=== PATIENT | female | born 1990 | race Caucasian/White ===

== ENCOUNTER 2019-03-02 14:55 | Outpatient (CLI) | payer MEDICAID ==
[~2019-03-02 14:55] MED LIST: PREN-19 PO
[2019-03-02] MEDS ORDERED: BETAMET NA PHOS/AC(6 MG/ML) 2 ML INJ SYG IM ONE (19:30)
[2019-03-02] MEDS ORDERED: TERBUTALINE 1 MG/ML INJ SC ONE (19:30)
--- NOTE | 2019-03-02 19:59 | PN ---
Triage Information Date/Time 03/02/19 Reason for visit: Uterine contractions Weeks of Gestation 35w4d /Para A2 Diabetes: none Hypertention: none Objective Heart Rate: 150's Contractions: >10 Minutes Apart Exam VE close /40/-3 Results/Medications Results 24 hrs Laboratory Tests Test 03/02/19 17:45 Urine Color YELLOW Urine Clarity CLEAR Urine pH 6.0 Urine Specific [place] 1.018 Urine Ketones NEGATIVE Urine Nitrite NEGATIVE Urine Bilirubin NEGATIVE Urine Urobilinogen NEGATIVE Urine Leukocyte Esterase NEGATIVE Urine Hemoglobin NEGATIVE Urine Glucose NEGATIVE Urine Total Protein NEGATIVE Medications terbutaline BMZ x1 Imaging Results BPP 03/15 VIC 10.9 Disposition: Discharge Assessment/Plan A IUP 35w4d R/O PTL P discharge home RTH for 2nd dose in 24hrs JR JIMENEZ MD Mar 02, 2019 19:59
--- NOTE | 2019-03-02 21:32 | TRIAGE ---
OB Triage Datetime Report Generated by CPN: 03/02/2019 21:32 Datetime: 03/02/2019 20:55 Pain Assessment Pain Scale: 0 Pain Presence: None/Denies Pain Type: N/A Pain Assessment Comments: Pt refuses need for Terbutaline, minimal UC's noted. Datetime: 03/02/2019 20:13 Pain Assessment Pain Scale: 0 Pain Presence: None/Denies Pain Type: N/A Datetime: 03/02/2019 19:00 Labor Evaluation Frequency: Irregular Monitor Mode: External Duration (sec)2399: 30-60 Quality: Mild Pattern: Normal: <= 5 Contractions in 10 Minutes Resting Tone [place]: Relaxed Contraction Comments: uterine irritability noted Heart Rate FHR Baseline Rate: 130 Monitor Mode: External US FHR Baseline Changes: No Baseline Change Variability: Moderate 6-25 bpm Accelerations: 15X15 Decelerations: None Category: Category I Datetime: 03/02/2019 17:00 Labor Evaluation Frequency: OCC Monitor Mode: External Quality: Mild Pattern: Normal: <= 5 Contractions in 10 Minutes Resting Tone [place]: Relaxed Contraction Comments: uterine irritability noted Heart Rate FHR Baseline Rate: 130 Monitor Mode: External US FHR Baseline Changes: No Baseline Change Variability: Moderate 6-25 bpm Accelerations: 15X15 Decelerations: None Category: Category I Pain Assessment Pain Scale: 4 Pain Presence: Intermittent Pain Type: Contraction Pain Location: Abdomen; Back Pain Goal: 3 Pain Relief Measures: Comfort Measures Datetime: 03/02/2019 16:00 Labor Evaluation Frequency: 10 Monitor Mode: External Duration (sec)2399: 60 Quality: Mild Pattern: Normal: <= 5 Contractions in 10 Minutes Resting Tone [place]: Relaxed Heart Rate FHR Baseline Rate: 135 Monitor Mode: External US FHR Baseline Changes: No Baseline Change Variability: Moderate 6-25 bpm Accelerations: 15X15 Decelerations: None Category: Category I Pain Assessment Pain Scale: 4 Pain Presence: Intermittent Pain Type: Contraction; Ache Pain Location: Abdomen; Back Pain Goal: 2 Pain Relief Measures: Comfort Measures Datetime: 03/02/2019 15:35 Vaginal Exam Dilatation (cms): 0.0 Effacement (%): 40 Station: -3 Exam By: TM Datetime: 03/02/2019 15:07 Assessment Type: Triage Maternal Assessment Level of Consciousness: Keenly Alert, Responsive DTR's/Clonus: DTRs 2+; No Clonus Headache: Denies Blurred Vision: No Respiratory Effort: Unlabored; Regular Rhythm; Equal Expansion Breath Sounds, Left: Clear and Equal Breath Sounds, Right: Clear and Equal Nausea/Vomiting: Denies RUQ Epigastric Pain: Denies Lower Extremities Edema: None Degree: None Upper Extremities Edema: None Degree: None Facial Edema: None Fall Risk Assessment History of Falling: (0) No Secondary Diagnosis: (0) No Ambulatory Aid: (0) Bedrest/Nurse Assist IV Therapy: (0) No Gait: (0) Normal/Bedrest/Immobile Mental Status: (0) Oriented to Own Ability Fall Score: 0 Fall Risk Score Definition: No Risk: No action required Datetime: 03/02/2019 15:05 Stage of : OB Triage Datetime: 03/02/2019 15:02 Time of Arrival: 03/02/2019 14:50 EGA: 35.4 Chief Complaint: UC Movement: Present Contractions: Occasional Time Contractions Began: 03/01/2019 20:00 Rupture of Membranes: Denies Vaginal Bleeding: None Vaginal Discharge: Denies Recent Sexual Intercouse: Denies Abdominal Trauma: Not Applicable Patient Complaints: Contractions Time Provider Notified: 03/02/2019 18:55 Provider Notified: Dr. Quezada Initial Plan: NST, VIC/BPP, VE
== END 2019-03-02 21:15 | disposition home or self-care (01) ==
LOC: OBT 14:55 → L-D 14:56 → OBT 21:15
PROVIDERS: ATTEND Obstetrics & Gynecology
DX: O62.9 Abnormality of forces of labor, unspecified (principal); Z3A.35 35 weeks gestation of pregnancy
CPT/HCPCS: 76818; 81003; 87086; J0702; Z7500; G0463

== ENCOUNTER 2019-03-03 19:08 | Outpatient (CLI) | payer MEDICAID ==
[~2019-03-03] VITALS: Ht 149.9 cm; Wt 75.6 kg
[2019-03-03 19:25] VITALS: BP 106/61; PULSE 81; RESP 16
[2019-03-03] MEDS ORDERED: BETAMET NA PHOS/AC(6 MG/ML) 2 ML INJ SYG IM ONE (19:30)
--- NOTE | 2019-03-03 21:28 | TRIAGE ---
OB Triage Datetime Report Generated by CPN: 03/03/2019 21:28 Datetime: 03/03/2019 20:54 Stage of : OB Triage Datetime: 03/03/2019 20:38 Stage of : OB Triage Monitor Mode: External Pattern: Normal: <= 5 Contractions in 10 Minutes Resting Tone [place]: Relaxed FHR Baseline Rate: 135 Monitor Mode: External US FHR Baseline Changes: No Baseline Change Variability: Moderate 6-25 bpm Accelerations: 15X15 Decelerations: None Category: Category I Datetime: 03/03/2019 19:44 Stage of : OB Triage Monitor Mode: External Pattern: Normal: <= 5 Contractions in 10 Minutes Resting Tone [place]: Relaxed FHR Baseline Rate: 135 Monitor Mode: External US FHR Baseline Changes: No Baseline Change Variability: Moderate 6-25 bpm Accelerations: 15X15 Decelerations: None Category: Category I Datetime: 03/03/2019 19:43 Time of Arrival: 03/03/2019 19:05 EGA: 35.5 Arrived By: Ambulatory Arrived From: Home Chief Complaint: presents w/ order for 2nd betamethasone Movement: Present Contractions: Denies/Absent Rupture of Membranes: Denies Vaginal Bleeding: None Vaginal Discharge: Denies Recent Sexual Intercouse: Denies Abdominal Trauma: Not Applicable Patient Complaints: None Time Provider Notified: 03/03/2019 19:45 Provider Notified: DR ENNIS Initial Plan: EFM,BETA #2 Datetime: 03/03/2019 19:22 Stage of : OB Triage Level of Consciousness: Keenly Alert, Responsive Headache: Denies Blurred Vision: No Respiratory Effort: Unlabored Nausea/Vomiting: Denies RUQ Epigastric Pain: Denies Facial Edema: None Monitor Mode: External Resting Tone [place]: Relaxed FHR Baseline Rate: 135 Monitor Mode: External US Pain Scale: 0 Pain Presence: None/Denies Pain Type: N/A Datetime: 03/02/2019 20:59 Frequency: x4 Monitor Mode: External Duration (sec)2399: 50-80 Quality: Mild Pattern: Normal: <= 5 Contractions in 10 Minutes Resting Tone [place]: Relaxed FHR Baseline Rate: 125 Monitor Mode: External US Variability: Moderate 6-25 bpm Accelerations: 15X15 Decelerations: None Category: Category I Datetime: 03/02/2019 20:00 Frequency: Irregular Monitor Mode: External Quality: Mild Pattern: Normal: <= 5 Contractions in 10 Minutes Resting Tone [place]: Relaxed FHR Baseline Rate: 125 Monitor Mode: External US Variability: Moderate 6-25 bpm Accelerations: 15X15 Decelerations: None Category: Category I Datetime: 03/02/2019 15:07 Fall Score: 0 Fall Risk Score Definition: No Risk: No action required Datetime: 03/02/2019 15:02 EGA: 35.4
--- NOTE | 2019-03-05 10:51 | PN ---
Triage Information Date/Time late entry note for 03/03/2019 Reason for visit: here for second dose of betamethasone Weeks of Gestation /Para at 35+ wks ga SHUKRI 04/01/2019 here to receive second dose of betamethasone for contractions Patient reposts positive movement, denies contractions, denies vaginal bleeding or leaking fluid Diabetes: none Hypertention: none Objective Vital Signs Date Temp Pulse Resp B/P (MAP) Pulse Ox O2 O2 Flow FiO2 Time Delivery Rate 03/03/19 98.2 81 16 106/61 Room Air 19:25 (76) Heart Rate: 140's Heart Rate Comments FHR tracing cat 1 Contractions: None Exam cervix closed /40% /-3 Results/Medications Imaging Results PROCEDURE: US OB biophysical profile. CLINICAL INDICATION: Decreased movements. labor. TECHNIQUE: Multiple sonographic images of the pelvis were obtained. The images were reviewed on a PACS workstation. COMPARISON: 11/15/2018 FINDINGS: There is a live intrauterine gestation. There is a normal amount of amniotic fluid with an VIC = 10.9 cm. Maximal volume pocket = 4.2 cm. Position: Cephalic. Cardiac activity is present with 150 beats per minute. The placenta is anterior. No evidence of placenta previa or abruption. Biophysical profile: movement 2/2 tone 2/2. breathing 2/2 VIC 2/2 Total 03/15 IMPRESSION: Normal biophysical profile. Estimated gestational age: 35 weeks and 5 days RPTAT:AAJJ Physician Pedro Date Time Electronically viewed and signed by Physician Pedro on 03/02/2019 16:17 MH/ CC: RJ JIMENEZ MD [id number] Disposition: Discharge Assessment/Plan kick counts were given labor precautions were given Patient instructed to f/u with obgyn clinic in 1-2 days ASHISH ENNIS MD Mar 05, 2019 10:51
== END 2019-03-03 21:03 | disposition home or self-care (01) ==
LOC: OBT 19:08 → L-D 19:08 → OBT 21:03
PROVIDERS: ATTEND Obstetrics & Gynecology
DX: O62.9 Abnormality of forces of labor, unspecified (principal); Z3A.35 35 weeks gestation of pregnancy
CPT/HCPCS: J0702; Z7500; G0463

== ENCOUNTER 2019-03-25 15:09 | Inpatient (IN) | payer MEDICAID ==
[~2019-03-25] VITALS: Ht 149.9 cm; Wt 75.6 kg
[2019-03-25 15:18] VITALS: Ht 149.9 cm; Wt 75.6 kg
[2019-03-25 15:19] VITALS: BP 133/68; PULSE 75; RESP 18
[2019-03-25] MEDS ORDERED: LIDOCAINE 1% (MPF) 30 ML INJ INJ PRN (15:30)
[2019-03-25] MEDS ORDERED: OXYTOCIN 30 UNITS/LR 500 ML IV PRN (15:30)
[2019-03-25] MEDS ORDERED: AMPICILLIN 2 GM/NS (PMX) 100 ML IV ONE (15:30)
[2019-03-25] MEDS ORDERED: OXYTOCIN 30 UNITS/LR 500 ML IV SCH ×2 (15:30)
[2019-03-25] MEDS ORDERED: MISOPROSTOL 200 MCG TAB PR PRN (15:30)
[2019-03-25] MEDS ORDERED: BUTORPHANOL 2 MG INJ IV PRN (15:30)
[2019-03-25] MEDS ORDERED: METHYLERGONOVINE 0.2 MG INJ IM PRN (15:30)
[2019-03-25] MEDS ORDERED: IBUPROFEN 600 MG TAB PO PRN (15:30)
[2019-03-25] MEDS ORDERED: CARBOPROST 250 MCG INJ IM PRN (15:30)
[2019-03-25] MEDS: LACTATED RINGER'S 1,000 ML IV SCH ×2 (15:58→22:47)
[2019-03-25] MEDS ORDERED: AMPICILLIN 1 GM/NS (PMX) 50 ML IV SCH (19:30)
[2019-03-25] MEDS ORDERED: MINERAL OIL LIGHT 10 ML VIAL TOP PRN (21:00)
[2019-03-26] MEDS ORDERED: OXYTOCIN 30 UNITS/LR 500 ML IV SCH (01:05)
[2019-03-26] MEDS ORDERED: METHYLERGONOVINE 0.2 MG INJ IM PRN (01:30)
[2019-03-26] MEDS ORDERED: OXYCODONE/ASPIRIN (4.88/325) TAB PO PRN ×2 (01:30)
[2019-03-26] MEDS ORDERED: CARBOPROST 250 MCG INJ IM PRN (01:30)
[2019-03-26] MEDS ORDERED: WITCH HAZEL/GLYCERIN PAD PR PRN (01:30)
[2019-03-26] MEDS ORDERED: BENZOCAINE 20% 56 ML SPRAY TOP PRN (01:30)
[2019-03-26] MEDS ORDERED: ZOLPIDEM 5 MG TAB PO PRN (01:30)
[2019-03-26] MEDS ORDERED: LANOLIN HPA 1 PKT TOP PRN (01:30)
[2019-03-26] MEDS ORDERED: OXYTOCIN 30 UNITS/LR 500 ML IV PRN (01:30)
[2019-03-26] MEDS ORDERED: MISOPROSTOL 200 MCG TAB PR PRN (01:30)
[2019-03-26] MEDS: IBUPROFEN 600 MG TAB PO SCH ×4 (02:15→17:47)
[2019-03-26 03:50] VITALS: BP 108/57; PULSE 79; RESP 20
[2019-03-26] MEDS: LACTATED RINGER'S 1,000 ML IV* SCH ×3 (05:17→17:05)
[2019-03-26 08:30] VITALS: BP 105/59; PULSE 64; RESP 18
[2019-03-26] MEDS: SENNA/DOCUSATE NA (8.6MG/50MG) TAB PO SCH ×2 (09:16→20:47)
[2019-03-26 16:20] VITALS: BP 115/67; PULSE 77; RESP 18
[2019-03-27] MEDS: IBUPROFEN 600 MG TAB PO SCH ×4 (00:03→17:50)
[2019-03-27] MEDS: LACTATED RINGER'S 1,000 ML IV* SCH ×3 (01:05→17:05)
[2019-03-27 04:00] VITALS: BP 108/66; PULSE 68; RESP 19
[2019-03-27 08:00] VITALS: BP 97/55; PULSE 62; RESP 16
[2019-03-27] MEDS: SENNA/DOCUSATE NA (8.6MG/50MG) TAB PO SCH (09:00)
[2019-03-27 13:19] VITALS: BP 97/55; PULSE 62; RESP 16
[2019-03-27 15:45] VITALS: BP 108/70; PULSE 71; RESP 16
[2019-03-28] MEDS ORDERED: DIPHTH/TET/ACEL PERTUSS (ADULT) 0.5 ML VIAL IM* ONE (09:00)
== END 2019-03-27 18:40 | disposition home or self-care (01) | DRG 807 ==
LOC: OBT 15:09 → L-D 15:10 → OBT 15:25 → PP1 03-26 00:47
PROVIDERS: ADMIT Obstetrics & Gynecology; ATTEND Obstetrics & Gynecology
PROC: 10E0XZZ Delivery of Products of Conception, External Approach (ICD-10-PCS; principal; 2019-03-25)
PROC: 0HQ9XZZ Repair Perineum Skin, External Approach (ICD-10-PCS; 2019-03-25)
PROC: 4A1HXCZ Monitoring of Products of Conception, Cardiac Rate, External Approach (ICD-10-PCS; 2019-03-25)
PROC: 3E0334Z Introduction of Serum, Toxoid and Vaccine into Peripheral Vein, Percutaneous Approach (ICD-10-PCS; 2019-03-26)
DX: O99.824 Streptococcus B carrier state complicating childbirth (principal); Z37.0 Single live birth; O70.0 First degree perineal laceration during delivery; Z3A.38 38 weeks gestation of pregnancy; Z29.13 Encounter for prophylactic Rho(D) immune globulin
CPT/HCPCS: 76815; 85025; 85610; 85730; 86592; 86703; 86850; 86885; 86900; 86901; 87340; 99464; G0463; J0290; J0595; J2590; J2790; J7120